=== PATIENT | male | born 1945 | race Asian ===

== ENCOUNTER 2020-08-21 09:57 | Inpatient (IN) | payer OTHER ==
[~2020-08-21] VITALS: Ht 160 cm; Wt 65.8 kg
[~2020-08-21 09:57] MED LIST: LOSARTAN POTASS25 MG ORAL; METOPROLOL SUCC25 MG ORAL; ZOFRAN4 M1 ORAL
--- NOTE | 2020-08-21 10:22 | Emergency Room Report ---
History of Present Illness General Chief Complaint: Hypertension Source: Patient Present Illness HPI Patient is a 75-year-old male past medical history of hypertension who presents to the ER complaining of elevated blood pressure. Patient states that he has been checking his blood pressure at home for the past 3 days and that it has been high. He complains of associated dizziness. He states that he felt like his heart was pounding hard but denies any chest pain or shortness of breath. He denies any blurry vision but states that his eyes were red yesterday. He denies any focal weakness. He denies any abdominal pain or hematuria. Patient states that he is on Cozaar and took 4 pills yesterday to lower his blood pressure. He states that he did not take any blood pressure medicine today because he was coming to the hospital. He denies any fever or chills. Allergies: Coded Allergies: No Known Allergies (Unverified , 03/02/19) COVID-19 Screening Contact w/high risk pt: No Experienced COVID-19 symptoms?: No COVID-19 Testing performed PSYCHOLOGY TEACHER: No Patient History Reviewed Nursing Documentation: PMH: Agreed; PSxH: Agreed Nursing Documentation-PMH Past Medical History: No History, Except For Hx Cardiac Problems: Yes - Dysrhythmia Hx Hypertension: Yes Hx Cancer: No Hx Gastrointestinal Problems: No - Hemorrhoids Hx Neurological Problems: No Review of Systems All Other Systems: negative except mentioned in HPI Physical Exam Vital Signs Date Time Temp Pulse Resp B/P (MAP) Pulse Ox O2 Delivery O2 Flow Rate FiO2 08/21/20 10:08 98.8 64 20 180/91 (120) 95 Room Air Sp02 EP Interpretation: reviewed, normal General Appearance: no apparent distress, alert, GCS 15, non-toxic Head: normocephalic, atraumatic Eyes: bilateral eye normal inspection, bilateral eye PERRL ENT: hearing grossly normal, normal pharynx, no angioedema, normal voice Neck: full range of motion, supple/symm/no masses Respiratory: chest non-tender, lungs clear, normal breath sounds, speaking full sentences Cardiovascular #1: regular rate, rhythm, no edema Gastrointestinal: normal bowel sounds, non tender, soft, non-distended, no guarding, no rebound Rectal: deferred Musculoskeletal: no calf tenderness, moves extm spontaneously, no lower extremity edema Neurologic: certified adapted physical educator III-XII nml as tested, oriented x3 Psychiatric: no suicidal/homicidal ideation Skin: no rash Lymphatic: no adenopathy Medical Decision Making Diagnostic Impression: Primary Impression: Malignant hypertension Additional Impression: Dizziness ER Course Patient presents hypertensive with headache and dizziness. Patient CT demonstrates no acute intracranial pathology. Patient's labs are negative including negative troponin and normal creatinine. Patient given IV hydralazine. Patient is now normotensive. Patient states that he is having this issue daily. Patient will be admitted for further treatment and evaluation. Laboratory Tests Test 08/21/20 10:32 White Blood Count 5.4 K/UL (4.8-10.8) Red Blood Count 4.45 M/UL (4.70-6.10) L Hemoglobin 14.6 G/DL (14.2-18.0) Hematocrit 44.8 % (42.0-52.0) Mean Corpuscular Volume 101 FL (80-99) H Mean Corpuscular Hemoglobin 32.9 PG (27.0-31.0) H Mean Corpuscular Hemoglobin Concent 32.7 G/DL (32.0-36.0) Red Cell Distribution Width 11.5 % (11.6-14.8) L Platelet Count 215 K/UL (150-450) Mean Platelet Volume 6.0 FL (6.5-10.1) L Neutrophils (%) (Auto) 59.0 % (45.0-75.0) Lymphocytes (%) (Auto) 31.5 % (20.0-45.0) Monocytes (%) (Auto) 8.1 % (1.0-10.0) Eosinophils (%) (Auto) 0.5 % (0.0-3.0) Basophils (%) (Auto) 1.1 % (0.0-2.0) Sodium Level 142 MMOL/L (136-145) Potassium Level 3.9 MMOL/L (3.5-5.1) Chloride Level 105 MMOL/L (98-107) Carbon Dioxide Level 32 MMOL/L (21-32) Anion Gap 5 mmol/L (5-15) Blood Urea Nitrogen 18 mg/dL (7-18) Creatinine 0.9 MG/DL (0.55-1.30) Estimated Glomerular Filtration Rate > 60 mL/min (>60) Glucose Level 102 MG/DL (74-106) Calcium Level 8.7 MG/DL (8.5-10.1) Magnesium Level 2.0 MG/DL (1.8-2.4) Total Bilirubin 0.9 MG/DL (0.2-1.0) Aspartate Amino Transferase (AST) 18 U/L (15-37) Alanine Aminotransferase (ALT) 19 U/L (12-78) Alkaline Phosphatase 61 U/L (46-116) Troponin I 0.000 ng/mL (0.000-0.056) Total Protein 7.4 G/DL (6.4-8.2) Albumin 4.1 G/DL (3.4-5.0) Globulin 3.3 g/dL Albumin/Globulin Ratio 1.2 (1.0-2.7) EKG Diagnostic Results Troponin ordered: Yes When was troponin ordered?: Aug 21, 2020 EKG Time: 10:58 EP Interpretation: Petra Lindsey MD Rate: bradycardiac - 59 bpm Rhythm: other - Sinus bradycardia ST Segments: no acute changes ASA given to the pt in ED: No Rhythm Strip Diag. Results Rhythm Strip Time: 11:03 EP Interpretation: yes - Petra Lindsey MD Rate: 63 bpm Rhythm: NSR, no PVC's, no ectopy Chest X-Ray Diagnostic Results Chest X-Ray Diagnostic Results : Chest X-Ray Ordered: Yes # of Views/Limited/Complete: 1 View Indication: Other - dizziness EP Interpretation: Yes Interpretation: no consolidation, no effusion, no pneumothorax, no acute cardiopulmonary disease Impression: No acute disease Electronically Signed by: Petra Lindsey MD Last Vital Signs Date Time Temp Pulse Resp B/P (MAP) Pulse Ox O2 Delivery O2 Flow Rate FiO2 08/21/20 10:08 98.8 64 20 180/91 (120) 95 Room Air Disposition: PLACE IN OBSERVATION - telemetry Condition: Critical Physician Consult: Dr. Ismael FERRELL at 1140am Additional Instructions: Please note that this report is being documented using [employer] technology. This can lead to erroneous entry secondary to incorrect interpretation by the dictating instrument. Ptera Lindsey M.D. Aug 21, 2020 10:22
--- NOTE | 2020-08-21 10:30 | NUR ---
ED Nurse Note: Pt ambulated to ED from home d/t elevated blood pressure of 200/100 at home accompanied by some 5/10 minor headache. Per pt he takes cozaar at home but denies taking the medication today. Pt was placed on bed and gown; hooked to formal wear rental clerk latest BP: 158/76. Will continue to monitor.
[2020-08-21 10:35] VITALS: BP 180/91
--- NOTE | 2020-08-21 10:37 | NUR ---
ED Nurse Note: Pt was taken to CT
--- NOTE | 2020-08-21 10:58 | Diagnostic Imaging Report ---
EXAM: CT Head Without Intravenous Contrast CLINICAL HISTORY: PAIN TECHNIQUE: Axial computed tomography images of the head/brain without intravenous contrast. CTDI is 56.4 mGy and DLP is 1045.5 mGy-cm. One or more of the following dose reduction techniques were used: automated exposure control, adjustment of the mA and/or kV according to patient size, use of iterative reconstruction technique. Coronal reformatted images were created and reviewed. COMPARISON: No relevant prior studies available. FINDINGS: Brain: Generalized cerebral parenchymal volume loss, likely age- related. Brain parenchyma otherwise appears unremarkable. No significant white matter edema. No acute intracranial hemorrhage. No mass effect or midline shift. Ventricles: Unremarkable. No ventriculomegaly. Bones/joints: Unremarkable. No depressed skull fracture. Soft tissues: Unremarkable. Sinuses: Mild mucosal thickening in the ethmoid air cells and left maxillary sinus. Remaining visualized paranasal sinuses appear clear. No sinus air-fluid levels. Mastoid air cells: Unremarkable as visualized. No mastoid effusion. IMPRESSION: 1. No acute intracranial hemorrhage. No mass effect or midline shift. 2. Mild mucosal thickening in the ethmoid air cells and left maxillary sinus. Remaining visualized paranasal sinuses appear clear. No sinus air- fluid levels.
[2020-08-21 11:07] LABS: BASOPHILS % (AUTO) 1.1 % (0.0-2.0); EOSINOPHILS % (AUTO) 0.5 % (0.0-3.0); HEMATOCRIT 44.8 % (42.0-52.0); HEMOGLOBIN 14.6 G/DL (14.2-18.0); LYMPHOCYTES % (AUTO) 31.5 % (20.0-45.0); MEAN CORPUSCULAR VOLUME 101 FL (80-99); MONOCYTES % (AUTO) 8.1 % (1.0-10.0); PLATELET COUNT 215 K/UL (150-450); RED BLOOD COUNT 4.45 M/UL (4.70-6.10); RED CELL DISTRIBUTION WIDTH 11.5 % (11.6-14.8); WHITE BLOOD COUNT 5.4 K/UL (4.8-10.8)
--- NOTE | 2020-08-21 11:07 | Diagnostic Imaging Report ---
EXAM: XR Chest, 1 View CLINICAL HISTORY: PAIN TECHNIQUE: Frontal view of the chest. COMPARISON: No relevant prior studies available. FINDINGS: Lungs: Unremarkable. The lungs appear clear. No focal consolidation. Pleural space: Unremarkable. The costophrenic angles are sharp. No visible pneumothorax. Heart: Unremarkable. No cardiomegaly. Mediastinum: Unremarkable. Bones/joints: Unremarkable. IMPRESSION: Unremarkable chest x-ray.
[2020-08-21 11:22] LABS: ANION GAP 5 mmol/L (5-15); BLOOD UREA NITROGEN 18 mg/dL (7-18); CALCIUM 8.7 MG/DL (8.5-10.1); CARBON DIOXIDE 32 MMOL/L (21-32); CHLORIDE 105 MMOL/L (98-107); CREATININE 0.9 MG/DL (0.55-1.30); POTASSIUM 3.9 MMOL/L (3.5-5.1); SODIUM 142 MMOL/L (136-145)
[2020-08-21 11:29] LABS: ALANINE AMINOTRANSFERASE 19 U/L (12-78); ALBUMIN 4.1 G/DL (3.4-5.0); ALBUMIN/GLOBULIN RATIO 1.2 (1.0-2.7); ALKALINE PHOSPHATASE 61 U/L (46-116); ASPARTATE AMINO TRANSFERASE 18 U/L (15-37); BILIRUBIN,TOTAL 0.9 MG/DL (0.2-1.0)
[2020-08-21 11:40] VITALS: BP 116/74
--- NOTE | 2020-08-21 12:00 | NUR ---
ED Nurse Note: report given to MATIAS Delgado in telemetry unit.
--- NOTE | 2020-08-21 12:01 | NUR ---
ED Nurse Note: Pt was transferred to Telemetry unit under the care of Dr. Guevara. Report for transfer was given to MATIAS Delgado in tele unit. Pt was transferred on stable condition; all belongings was sent with pt.
[2020-08-21] MEDS ORDERED: ATORVASTATIN CA20 MG ORAL (12:10)
[2020-08-21] MEDS ORDERED: LINZESS145 MCG PO (12:10)
--- NOTE | 2020-08-21 12:40 | NUR ---
NURSE NOTES: pt admitted to tele in stable conditions. continue edge worker, no signs of cardiac or respiratory distress at this time. Bed is locked and in lowest position. Call light within reach. All belongings were checked pt has $97 dollars inside white envelope and 2 credit cards inside of his pocket pants. pt does not want to put money in the safe box. Pt has cell ph. watch and 1 ring. pt AOx4 and able to verbalize his wishes.
[2020-08-21 16:00] VITALS: BP 136/73
[2020-08-21] MEDS: Losartan 50mg tab ORAL SCH (16:29)
[2020-08-21] MEDS: Heparin 5000 units/ml inj SUBQ SCH (16:32)
--- NOTE | 2020-08-21 19:37 | NUR ---
NURSE HAND-OFF REPORT: Important Events on Shift: likes to walk around Patient Status: full code Diet: cardiac Pending Orders: Pending Results/Labs: Pending MD notification: Latest Vital Signs: Temperature 97.7 , Pulse 63 , B/P 136 /73 , Respiratory Rate 18 , O2 SAT 96 , Room Air, O2 Flow Rate . Vital Sign Comment: EKG Rhythm: Rhythm change?: N MD Notified?: - MD Response: Latest Machado Fall Score: 35 Fall Risk: Medium Risk Safety Measures: Call light Within Reach, Bed Alarm Zone 2, Side Rails Side Rails x2, Bed position Low and Locked. Fall Precautions: y Yellow Socks y Yellow Gown y Report given to Cristobal Guillory/RN.
--- NOTE | 2020-08-21 19:40 | NUR ---
NURSE NOTES: Patient received from MATIAS Diaz. Patient is awake, alert and oriented x 4. Patient is able to walk and express his needs and very talkative. Patient has no complaints as of the moment. Patient is on room air with no signs of respiratory distress. Patient has a right 20 gauge IV on his forearm, patent and flushed. Bed is in the lowest position and locked, call light within reach. Will continue to monitor.
[2020-08-21 20:00] VITALS: BP 119/73
[2020-08-22] VITALS: BP 118/66
[2020-08-22 04:00] VITALS: BP 132/75
--- NOTE | 2020-08-22 07:00 | NUR ---
NURSE NOTES: Received report from MATIAS Isaacs. Pt is sitting up on side of bed eating breakfast. Pt is AOx4, stable on RA. no s/s or complaint of distress at this time. Pt IV on RFA, asymptomatic and intact. Pt glasses bedside. Pt ambulatory w/ steady gait. Pt bed low and locked, call light in reach and bed alarm on. Pt verbalized understanding to call for help.
--- NOTE | 2020-08-22 07:05 | NUR ---
NURSE HAND-OFF REPORT: Important Events on Shift:[Patient has a chest x-ray on 08/23/2020. Patient able to stand up and use the restroom with a steady gait] Patient Status: [Stable] Diet: [Cardiac diet] Pending Orders: [] Pending Results/Labs:[] Pending MD notification:[] Latest Vital Signs: Temperature 97.4 , Pulse 78 , B/P 148 /87 , Respiratory Rate 18 , O2 SAT 100 , Room Air, O2 Flow Rate . Vital Sign Comment: [] EKG Rhythm: Sinus Bradycardia Rhythm change?: N MD Notified?: N - MD Response: Latest Machado Fall Score: 35 Fall Risk: Medium Risk Safety Measures: Call light Within Reach, Bed Alarm Zone 1, Side Rails Side Rails x2, Bed position Low and Locked. Fall Precautions: Patient Fall Education Report given to [MATIAS Oconnell].
[2020-08-22 07:51] VITALS: BP 148/87
[2020-08-22 07:58] VITALS: BP 148/87
[2020-08-22] MEDS: Losartan 50mg tab ORAL SCH (07:58)
[2020-08-22] MEDS: Heparin 5000 units/ml inj SUBQ SCH (07:59)
[2020-08-22] MEDS ORDERED: COZAAR50 MG ORAL (08:23)
--- NOTE | 2020-08-22 09:30 | History and Physical Report ---
DATE OF ADMISSION: 08/21/2020 CHIEF COMPLAINT: Uncontrolled hypertension. HISTORY OF PRESENT ILLNESS: The patient is a 75-year-old male. He has a history of hypertension and hyperlipidemia, who presented with complaints of uncontrolled hypertension. The patient was recently found to be hypertensive. He was on 25 mg of losartan, but had blood pressures in the 200s. He presented to the emergency room. There, he received a dose of IV blood pressure medicine. The blood pressure remains still high in the 180s. He is now admitted. PAST MEDICAL HISTORY: As above. PAST SURGICAL HISTORY: None. CURRENT MEDICATIONS: Include only losartan. FAMILY HISTORY: Significant for hypertension. SOCIAL HISTORY: Negative for tobacco, ethanol, or drugs. REVIEW OF SYSTEMS: GENERAL: No fevers or chills. HEENT: No headaches. CARDIOPULMONARY: No chest pain or shortness of breath. No palpitations. GASTROINTESTINAL: No nausea or vomiting. GENITOURINARY: No urgency or frequency. MUSCULOSKELETAL: No joint pain or swelling. NEUROLOGICAL: No evidence of seizures. PHYSICAL EXAMINATION: VITAL SIGNS: Temperature 98, pulse 64, respirations 20, and blood pressure 180/91. GENERAL: The patient is well developed, in no apparent distress. HEART: Regular rate and rhythm. LUNGS: Clear. ABDOMEN: Soft, nontender, nondistended. EXTREMITIES: No clubbing, cyanosis, or edema. LABORATORY DATA: Reconciled and reviewed. ASSESSMENT: This is a pleasant 75-year-old male admitted with complaints of uncontrolled hypertension. PLAN: Titrate antihypertensive regimen. If blood pressure is stable, the patient can be discharged with followup with his regular doctor. Kyle Guevara M.D. DR: ARACELI JOB#: [id number] CC:
--- NOTE | 2020-08-22 09:55 | NUR ---
CASE MANAGEMENT:INITIAL REVIEW 75 YR OLD MALE FROM HOME CC;HTN SI; MALIGNANT HTN. DIZZINESS 98.8 64 20 180/91 95% ON RA LABS ~ WNL CXR ~ Unremarkable chest x-ray. HEAD CT ~ 1. No acute intracranial hemorrhage. No mass effect or midline shift. 2. Mild mucosal thickening in the ethmoid air cells and left maxillary sinus. Remaining visualized paranasal sinuses appear clear. No sinus air-fluid levels. IS;IVF NS BOLUS TYLENOL PO ONCE HYDRALAZINE IV X2 ADMITTED TO TELE TELE STATUS DCP;PATIENT IS FROM HOME
--- NOTE | 2020-08-22 10:04 | NUR ---
NURSE NOTES: Pt IV removed catheter intact, wristband removed and tele monitor removed. Pt education, prescriptions and paper instructions given. verbalized understanding. Pt requesting medical records, filled out medical records for Pt. Pt verbalized understanding. Pt belongings accounted for and signed. Pt changed into personal clothing and friend here to parts picker in 20 mins. Pt walked down to lobby with TYSON Delgado. Pt discharged without incident.
--- NOTE | 2020-08-22 15:51 | Cardiology Report ---
APPROVED REPORT EKG Measurement Heart [id number] ID [id number] <Conclusion> Sinus bradycardia Otherwise normal ECG
--- NOTE | 2020-08-23 08:03 | Discharge Summary ---
Discharge Summary Discharge Summary _ DATE OF ADMISSION: 08/21/2020 DATE OF DISCHARGE: 08/22/2020 DISCHARGED BY: Dr. Guevara REASON FOR ADMISSION: 75 years old male with past medical history of hypertension, presented to emergency department complaining of elevated blood pressure at home. According to the patient he checked his blood pressure at home for the past 3 days and the readings were high. He reported associated dizziness. Patient also reported that his heart was pounding hard. He denied chest pain or shortness of breath. He denied blurry vision. He denied any focal weakness. No abdominal pain no dysuria or hematuria. Upon evaluation blood pressure was 180/91, pulse oximetry was stable on room air. Laboratory work-up revealed no leukocytosis, stable hemoglobin, hematocrit and platelet count. Stable electrolytes and renal parameters. Glucose 102. Troponin negative. EKG revealed sinus bradycardia with heart rate 59, no acute ischemic changes. Chest x-ray revealed no acute cardiopulmonary pathology. CT of the head revealed no acute intracranial pathology. In emergency department patient received hydralazine and admitted to telemetry floor for further management HOSPITAL COURSE: [] Patient admitted to telemetry floor. Telemetry showed sinus rhythm to sinus bradycardia with high 50th to 60. Antihypertensive regimen optimized. Patient was on losartan and hydralazine as needed. DVT and GI prophylaxis provided. Statin continued. Patient was counseled on low salt low cholesterol diet Blood pressure stabilized. Dizziness resolved. Patient clinically stabilized and was ready for discharge home. Due to rapid and unexpected improvement in patient condition, patient was discharged in 1 day. FINAL DIAGNOSES: Uncontrolled blood pressure hypertensive urgency -improved DISCHARGE MEDICATIONS: See Medication Reconciliation list. DISCHARGE INSTRUCTIONS: Patient was discharged home. Follow-up with a primary care provider in 1 week. I have been assigned to dictate discharge summary for this account. I was not involved in the patient's management. Selina Rm NP Aug 23, 2020 08:03
== END 2020-08-22 10:05 | disposition home or self-care (01) | DRG 305 ==
LOC: EMR 11:00 → EDBEDREQ 11:50 → 2E 12:21
DX: I16.0 Hypertensive urgency (principal); I10 Essential (primary) hypertension; E78.5 Hyperlipidemia, unspecified
CPT/HCPCS: 36415; 70450; 71045; 80053; 83735; 84484; 85025; 93005; 96361; 96374; 96375; 99285; J7030